=== PATIENT | male | born 1970 | race Caucasian/White ===

== ENCOUNTER 2024-11-17 13:03 | Emergency (ER) | payer MEDICAID ==
[~2024-11-17] VITALS: Ht 177.8 cm; Wt 11.4 kg
[2024-11-17 13:06] VITALS: BP 157/116; PULSE 77; RESP 14; O2SAT 98
[2024-11-17] MEDS ORDERED: NICO-687 TOP (13:29)
--- NOTE | 2024-11-17 13:30 | Physician Documentation ---
History of Present Illness ~ Chief Complaint: ETOH Withdrawl Stated Complaint: MED CLEARANCE Time Seen by MD: 13:16 HPI 54-year-old male presents to the ED with a complaint of ethanol withdrawal. He states that he was sober proximally 105 days and slipped over the last three days when he drank beer several times. He states he wants to be cleared for [facility] in his also requesting a nicotine patch while he is in recovery. Denies any nausea vomiting diarrhea severe tremors or history of seizures. Day of Onset: Nov 17, 2024 Medication Reconciliation Allergies: Coded Allergies: No Known Allergies (Unverified , 11/17/24) Scheduled Nicotine 21 MG Patch* (Habitrol 21 MG Patch*), 1 PATCH TOP DAILY Physical Exam Vital Signs: Temperature: 97.9, Source: Temporal, Heart Rate: 77, Respiratory Rate: 14, BP: 157/116, Pulse Oximetry: 98, Weight: 11.360 Oxygen Flow Rate: 0 Progress Results/Orders Results/Orders Vital Signs 11/17/24 13:06 Temp 97.9 Pulse 77 Resp 14 B/P (MAP) 157/116 Pulse Ox 98 O2 Flow Rate 0 Medical Decision Making Findings Patient does not present with [id number] alcohol withdrawal. He is only mildly shaky during my interview. I am going to prescribe him nicotine patch to help with nicotine cessation. At this time, I do not think he meets criteria for a Librium tapering prescription Departure Disposition: 01 HOME / SELF CARE / HOMELESS Impression: Primary Impression: Alcohol withdrawal syndrome Additional Impression: Cigarette nicotine dependence Condition: Stable Discharge Instructions: Alcohol Withdrawal Syndrome, [id number]-[id number] Additional Instructions: Medically cleared for [facility] Referrals: NO PRIMARY CARE PROVIDER (PCP) Prescriptions Nicotine 21 MG Patch* (Habitrol 21 MG Patch*) 1 Each Patch.td24 1 PATCH TOP DAILY for smoking cessation for 28 Days, #28 PATCH Prov: BOWEN GAGE NP 11/17/24 Education Educated: Patient Educated regarding: diagnosis Signature Scribe Signature: f Attestation: Scribed for Bowen Gage Np by Bowen Nava NP . 11/17/24 13:29 BOWEN GAGE NP Nov 17, 2024 13:30
[2024-11-17 13:40] VITALS: TEMP 97.9
== END 2024-11-17 13:47 | disposition home or self-care (01) ==
LOC: ER 13:04
DX: F10.239 Alcohol dependence with withdrawal, unspecified (principal); F17.210 Nicotine dependence, cigarettes, uncomplicated; Z79.899 Other long term (current) drug therapy; Y90.9 Presence of alcohol in blood, level not specified
CPT/HCPCS: 99282